=== PATIENT | female | born 1965 | race Caucasian/White ===

== ENCOUNTER 2016-07-25 13:55 | Emergency (ER) | payer BC, OTHER ==
[~2016-07-25] VITALS: Ht 162.6 cm; Wt 114.3 kg
[2016-07-25 14:02] VITALS: TEMP 36.6; Ht 162.6 cm; Wt 114.3 kg
[2016-07-25] MEDS ORDERED: NVLG SQ (14:16)
[2016-07-25] MEDS ORDERED: ADVIN25/60 INH (14:16)
[2016-07-25] MEDS ORDERED: MULTTAB58 PO (14:16)
[2016-07-25] MEDS ORDERED: ASCO10003 PO (14:16)
[2016-07-25] MEDS ORDERED: ALBU18002 INH (14:16)
[2016-07-25] MEDS ORDERED: CHOL1CAP27 PO (14:16)
[2016-07-25] MEDS ORDERED: CYCL10TA6 PO (14:16)
[2016-07-25] MEDS ORDERED: PARO10TA PO (14:16)
[2016-07-25] MEDS ORDERED: VALS40TA2 PO (14:16)
[2016-07-25] MEDS ORDERED: ASPI-461 PO (14:16)
[2016-07-25] MEDS ORDERED: GLC/500 PO (14:17)
[2016-07-25] MEDS ORDERED: INSU1.2I SC (14:19)
[2016-07-25] MEDS ORDERED: ONDANSETRON INJ 2 MG/ML 2 ML VIAL IV STA (14:54)
[2016-07-25] MEDS ORDERED: KETOROLAC TROMETHAMINE 30 MG/ML VIAL IV STA (14:54)
[2016-07-25] MEDS ORDERED: SODIUM CHLORIDE 0.9% 1000ML 1,000 ML IV STA (14:54)
--- NOTE | 2016-07-25 15:06 | EMERGENCY ROOM VISIT NOTE ---
History Report prepared by Ebony: David Wilcox Under the Supervision of: Dr. Hussain Chaves D.O. First contact with patient: 14:12 Chief Complaint: BACK PAIN Stated Complaint: SIDE PAIN GOING INTO BACK History of Present Illness The patient is a 50 year old female who presents to the Emergency Room with complaints of persistent left flank pain that started suddenly at 1000 this morning. The pain is rated 8/10 in severity and may radiate to the left lower quadrant. She has had similar pain in the past but it was never this severe. The patient also complains of nausea but she has not vomited. She denies headaches, chest pain, shortness of breath, problems with her bowels, or urinary symptoms. She denies any recent trauma or injury. The patient has a history of diabetes, hypertension, and diverticulosis. She is s/p hysterectomy for endometriosis. The patient has a family history of kidney stones. Source of History: patient Onset: 1000 this morning Position: back (left flank) Symptom Intensity: 8/10 Quality: other (sudden onset) Timing: other (persistent) Associated Symptoms: + nausea, No SOB, No chest pain, No headache, No urinary symptoms, No vomiting Review of Systems See HPI for pertinent positives & negatives. A total of 10 systems reviewed and were otherwise negative. Past Medical & Surgical Medical Problems: (1) Diabetes (2) Diverticulosis (3) HTN (hypertension) Family History FH: cancer FH: heart disease Kidney stone Social History Smoking Status: Never Smoker Housing Status: lives alone Occupation Status: employed Current/Historical Medications Scheduled Ascorbic Acid (Vitamin C), 2,000 MG PO DAILY Aspirin (Aspirin), 1 TAB PO DAILY Cholecalciferol (D3), 1 CAP PO DAILY Fluticasone Prop/Salmeterol (Advair Diskus 250/50 60 Dose), 1 PUFF INH BID Insulin Aspart (Novolog), UNITS SQ AC Insulin Glargine (Toujeo Solostar), 80 UNITS SC DAILY Levofloxacin (Levaquin), 750 MG PO DAILY Metformin Hcl (Glucophage), 500 MG PO DAILY Multiple Vitamin (Multivitamin), 1 TAB PO DAILY Paroxetine Hcl (Paxil), 10 MG PO QPM Valsartan (Diovan), 40 MG PO DAILY Scheduled PRN Albuterol Sulfate (Proair Respiclick), 1 PUFF INH Q6H PRN for SOB/Wheezing Cyclobenzaprine Hcl (Flexeril), 10 MG PO TID PRN for Muscle Spasms Oxycodone Immediate Rel Tab (Roxicodone Ir), 1-2 TAB PO Q4H PRN for Severe Pain Allergies Coded Allergies: Fish (Verified Allergy, Unknown, UNKNOWN, 07/25/16) Physical Exam Vital Signs Date Time Temp Pulse Resp B/P Pulse Ox O2 Delivery O2 Flow Rate FiO2 07/25/16 16:57 79 20 137/52 99 Room Air 07/25/16 16:01 72 18 157/76 98 Room Air 07/25/16 14:02 36.6 74 20 158/90 95 Room Air Physical Exam GENERAL: Patient is awake, alert, very anxious and uncomfortable appearing, appears to have difficulty getting comfortable. EYES: The conjunctivae are clear. The pupils are round and reactive. EARS, NOSE, MOUTH AND THROAT: The nose is without any evidence of any deformity. Mucous membranes are moist tongue is midline NECK: The neck is nontender and supple. RESPIRATORY: Normal respiratory effort is noted there is no evidence of wheezing rhonchi or rales CARDIOVASCULAR: Regular rate and rhythm noted there no murmurs rubs or gallops normal S1 normal S2 GASTROINTESTINAL: Mildly distended but soft, no specific guarding or rigidity elicited. BACK: No midline tenderness was noted, mid left CVA tenderness noted to percussion. MUSCULOSKELETAL/EXTREMITIES: There is no evidence of gross deformity full range of motion is noted in the hips and shoulders SKIN: There is no obvious evidence of any rash. There are no petechiae, pallor or cyanosis noted. NEUROLOGIC: Patient is awake alert and oriented x3 strength is symmetric patellar reflexes are 2+ bilaterally Medical Decision & Procedures ER Provider Diagnostic Interpretation: CT results as stated below per my review and radiologist interpretation. CT OF THE ABDOMEN AND PELVIS WITHOUT CONTRAST CLINICAL HISTORY: Left flank pain. COMPARISON STUDY: CT of the abdomen and pelvis January 19, 2007. TECHNIQUE: Axial images of the abdomen and pelvis were obtained without IV contrast. Images were reviewed in the axial, sagittal, and coronal planes. FINDINGS: Lung bases are clear. There is fatty infiltration of the liver. There is no biliary ductal dilatation status post cholecystectomy. Unenhanced images of the spleen, adrenal glands and pancreas are normal. There is no peripancreatic infiltration. No renal, ureteral or bladder calculi are present. There is no hydronephrosis or hydroureter. Subcutaneous densities are doubtful significance. These are partially calcified. There is left colon diverticulosis without evidence for acute diverticulitis. The appendix is normal. There is no evidence for a bowel obstruction. There is a fat-containing left groin hernia. Multilevel degenerative disc disease is noted within the lumbar spine, most pronounced at L3-L4 with posterior disc osteophyte complex that results in narrowing of the canal. This is suboptimally assessed by CT. IMPRESSION: 1. No urinary calculi or hydronephrosis. 2. No acute process within the abdomen or pelvis on unenhanced exam. 3. Colonic diverticulosis without evidence for acute diverticulitis. 4. Moderate to severe multilevel degenerative disc disease of the lumbar spine, most pronounced at L3-L4 with suspected severe central canal stenosis. Electronically signed by: Ozzie Cruz M.D. 07/25/2016 4:21 PM Dictated Date/Time: 07/25/2016 4:14 PM Laboratory Results 07/25/16 15:20 Red Blood Count 4.11, Mean Corpuscular Volume 86.4, Mean Corpuscular Hemoglobin 30.4, Mean Corpuscular Hemoglobin Concent 35.2, Mean Platelet Volume 8.9, Neutrophils (%) (Auto) 59.6, Lymphocytes (%) (Auto) 33.8, Monocytes (%) (Auto) 4.7, Eosinophils (%) (Auto) 1.5, Basophils (%) (Auto) 0.2, Neutrophils # (Auto) 3.29, Lymphocytes # (Auto) 1.86, Monocytes # (Auto) 0.26, Eosinophils # (Auto) 0.08, Basophils # (Auto) 0.01 07/25/16 15:20 Test 07/25/16 15:20 07/25/16 15:52 White Blood Count 5.51 K/uL (4.8-10.8) Red Blood Count 4.11 M/uL (4.2-5.4) Hemoglobin 12.5 g/dL (12.0-16.0) Hematocrit 35.5 % (37-47) Mean Corpuscular Volume 86.4 fL (80-100) Mean Corpuscular Hemoglobin 30.4 pg (25-34) Mean Corpuscular Hemoglobin Concent 35.2 g/dl (32-36) Platelet Count 283 K/uL (130-400) Mean Platelet Volume 8.9 fL (7.4-10.4) Neutrophils (%) (Auto) 59.6 % Lymphocytes (%) (Auto) 33.8 % Monocytes (%) (Auto) 4.7 % Eosinophils (%) (Auto) 1.5 % Basophils (%) (Auto) 0.2 % Neutrophils # (Auto) 3.29 K/uL (1.4-6.5) Lymphocytes # (Auto) 1.86 K/uL (1.2-3.4) Monocytes # (Auto) 0.26 K/uL (0.11-0.59) Eosinophils # (Auto) 0.08 K/uL (0-0.5) Basophils # (Auto) 0.01 K/uL (0-0.2) RDW Standard Deviation 40.6 fL (36.4-46.3) RDW Coefficient of Variation 12.9 % (11.5-14.5) Immature Granulocyte % (Auto) 0.2 % Immature Granulocyte # (Auto) 0.01 K/uL (0.00-0.02) Anion Gap 7.0 mmol/L (3-11) Est Creatinine Clear Calc Drug Dose 125.6 ml/min Estimated GFR () 118.3 Estimated GFR (Non- 102.1 BUN/Creatinine Ratio 17.1 (10-20) Calcium Level 8.5 mg/dl (8.5-10.1) Total Bilirubin 0.3 mg/dl (0.2-1) Direct Bilirubin < 0.1 mg/dl (0-0.2) Aspartate Amino Transf (AST/SGOT) 18 U/L (15-37) Alanine Aminotransferase (ALT/SGPT) 30 U/L (12-78) Alkaline Phosphatase 83 U/L (45-117) Total Protein 7.2 gm/dl (6.4-8.2) Albumin 3.5 gm/dl (3.4-5.0) Lipase 160 U/L (73-393) Urine Color YELLOW Urine Appearance CLEAR (CLEAR) Urine pH 6.0 (4.5-7.5) Urine Specific [place] 1.027 (1.000-1.030) Urine Protein NEG (NEG) Urine Glucose (UA) 2+ (NEG) Urine Ketones NEG (NEG) Urine Occult Blood NEG (NEG) Urine Nitrite NEG (NEG) Urine Bilirubin NEG (NEG) Urine Urobilinogen NEG (NEG) Urine Leukocyte Esterase MODERATE (NEG) Urine WBC (Auto) >30 /hpf (0-5) Urine RBC (Auto) 0-4 /hpf (0-4) Urine Hyaline Casts (Auto) 1-5 /lpf (0-5) Urine Epithelial Cells (Auto) >30 /lpf (0-5) Urine Bacteria (Auto) 1+ (NEG) Laboratory results per my review. Medications Administered Medications (Trade) Dose Ordered Sig/Ariane Route Start Time Stop Time Status Last Admin Dose Admin Ketorolac Tromethamine 30 mg 30 mg NOW STAT IV 07/25/16 14:54 07/25/16 14:55 DC 07/25/16 15:53 30 MG Sodium Chloride (Nss 1000ml) 1,000 ml @ 999 mls/hr Q1H1M STAT IV 07/25/16 14:54 07/25/16 15:54 DC 07/25/16 15:51 999 MLS/HR Ondansetron HCl (Zofran Inj) 4 mg NOW STAT IV 07/25/16 14:54 07/25/16 14:55 DC 07/25/16 15:52 4 MG Levofloxacin (Levaquin Tab) 750 mg NOW ONCE PO 07/25/16 16:30 07/25/16 16:31 DC 07/25/16 16:39 750 MG ED Course 1417: The patient was evaluated by my medical student. 1450: The patient was evaluated in room C12b. A complete history and physical examination were performed. 1454: Zofran 4 mg IV, NSS 1000 ml @ 999 mls/hr, Toradol 30 mg IV. 1630: Levaquin 750 mg PO. 1645: Reassessed the patient. Discussed the findings with the patient. She verbalized understanding and agreement of the treatment plan. The patient is ready for discharge. Medical Decision Prior records/ancillary studies reviewed. Triage Nursing notes reviewed. Additional history obtained from the family. The patient's history was concerning for flank pain. Differential diagnosis: Etiologies such as renal colic, appendicitis, diverticulitis, mesenteric ischemia, aortic pathology, infections, inflammatory bowel disease, PUD, biliary pathology, UTI, as well as others were entertained. The patient is a 50-year-old female who presented to the emergency department for an evaluation of left flank pain. The patient was very uncomfortable and I thought her condition was consistent with renal colic. The patient's CAT scan did not show any acute abnormality but her urine did show signs of urinary tract infection. She was treated with IV fluids IV pain medicine and IV antiemetics. She was also started on antibiotics in the emergency department. I discussed the patient's laboratory and radiographic studies with her including the findings on her lumbar spine. She states that she does have a history of disc herniation. She was encouraged to rest and avoid any strenuous activity. She was also encouraged to continue all medications as prescribed. She was also encouraged to follow-up with her primary care physician as soon as possible for possible MRI if symptoms do not improve otherwise she was encouraged to return to the emergency department immediately if symptoms change worsen or the need arises. Impression Primary Impression: Left flank pain Additional Impressions: UTI (urinary tract infection) Lumbar disc disease Scribe Attestation The scribe's documentation has been prepared under my direction and personally reviewed by me in its entirety. I confirm that the note above accurately reflects all work, treatment, procedures, and medical decision making performed by me. Departure Information Dispostion Home / Self-Care Prescriptions Levofloxacin (Levaquin) 750 Mg Tab 750 MG PO DAILY, #6 TAB Prov: Hussain Chaves, DO 07/25/16 Oxycodone Immediate Rel Tab (ROXICODONE IR) 5 Mg Tab 1-2 TAB PO Q4H Y for Severe Pain, #24 TAB Prov: Hussain Chaves, DO 07/25/16 Referrals Dwight Das M.D. (PCP) Forms HOME CARE DOCUMENTATION FORM, IMPORTANT VISIT INFORMATION, Work Instructions Patient Instructions ED Back Pain Acute Chronic, My [facility], Urinary Tract Infecs Women Additional Instructions Call your family to schedule a follow-up appointment. Rest and avoid any strenuous activity. Continue all medications as prescribed. Continue using Motrin and Tylenol as directed for pain. I would recommend an MRI the back whenever he follow-up with your family doctor if symptoms do not improve by treating the urinary tract infection. Problem Qualifiers Additional Impressions: UTI (urinary tract infection) Urinary tract infection type: site unspecified Hematuria presence: without hematuria Qualified Codes: N39.0 - Urinary tract infection, site not specified
[2016-07-25 15:39] LABS: BASO % 0.2 %; BASO ABS # 0.01 K/uL (0-0.2); COMPLETE YES; EOS % 1.5 %; HEMATOCRIT 35.5 % (37-47); IG% 0.2 %; LYMPH % 33.8 %; LYMPH ABS # 1.86 K/uL (1.2-3.4); MEAN CELL VOLUME 86.4 fL (80-100); MEAN CORPUSCULAR HEMOGLOBIN 30.4 pg (25-34); MEAN CORPUSCULAR HGB CONC 35.2 g/dl (32-36); MEAN PLATELET VOLUME 8.9 fL (7.4-10.4); MONO % 4.7 %; NEUT % 59.6 %; PLATELET COUNT 283 K/uL (130-400); RED BLOOD COUNT 4.11 M/uL (4.2-5.4); WHITE BLOOD COUNT 5.51 K/uL (4.8-10.8)
[2016-07-25 15:57] LABS: ALT/SGPT 30 U/L (12-78); BLOOD UREA NITROGEN 11 mg/dl (7-18); BUN/CREATININE RATIO 17.1 (10-20); CALCIUM 8.5 mg/dl (8.5-10.1); CARBON DIOXIDE 29 mmol/L (21-32); CHLORIDE 104 mmol/L (98-107); CREATININE 0.65 mg/dl (0.60-1.20); GLUCOSE 237 mg/dl (70-99); POTASSIUM 3.9 mmol/L (3.5-5.1); SODIUM 140 mmol/L (136-145)
[2016-07-25 16:03] LABS: ALKALINE PHOSPHATASE 83 U/L (45-117); AST/SGOT 18 U/L (15-37)
[2016-07-25 16:21] LABS: URINE APPEARANCE CLEAR (CLEAR); URINE BILIRUBIN NEG (NEG); URINE COLOR YELLOW; URINE EPITHELIAL CELL AUTO >30 /lpf (0-5); URINE NITRITE NEG (NEG); URINE SPECIFIC GRAVITY 1.027 (1.000-1.030); UROBILINOGEN NEG (NEG)
[2016-07-25 16:23] LABS: MANUAL MICROSCOPIC REQUIRED? NO; REVIEW REQ? NO
--- NOTE | 2016-07-25 16:23 | DIAGNOSTIC IMAGING REPORT ---
CT OF THE ABDOMEN AND PELVIS WITHOUT CONTRAST CLINICAL HISTORY: Left flank pain. COMPARISON STUDY: CT of the abdomen and pelvis January 19, 2007. TECHNIQUE: Axial images of the abdomen and pelvis were obtained without IV contrast. Images were reviewed in the axial, sagittal, and coronal planes. FINDINGS: Lung bases are clear. There is fatty infiltration of the liver. There is no biliary ductal dilatation status post cholecystectomy. Unenhanced images of the spleen, adrenal glands and pancreas are normal. There is no peripancreatic infiltration. No renal, ureteral or bladder calculi are present. There is no hydronephrosis or hydroureter. Subcutaneous densities are doubtful significance. These are partially calcified. There is left colon diverticulosis without evidence for acute diverticulitis. The appendix is normal. There is no evidence for a bowel obstruction. There is a fat-containing left groin hernia. Multilevel degenerative disc disease is noted within the lumbar spine, most pronounced at L3-L4 with posterior disc osteophyte complex that results in narrowing of the canal. This is suboptimally assessed by CT. IMPRESSION: 1. No urinary calculi or hydronephrosis. 2. No acute process within the abdomen or pelvis on unenhanced exam. 3. Colonic diverticulosis without evidence for acute diverticulitis. 4. Moderate to severe multilevel degenerative disc disease of the lumbar spine, most pronounced at L3-L4 with suspected severe central canal stenosis. Electronically signed by: Ozzie Cruz M.D. 07/25/2016 4:21 PM Dictated Date/Time: 07/25/2016 4:14 PM
[2016-07-25] MEDS ORDERED: LEVOFLOXACIN 250 MG TAB PO ONE (16:30)
[2016-07-25] MEDS ORDERED: OXYC1TAB3 PO (16:49)
[2016-07-25] MEDS ORDERED: LEVO1TAB35 PO (16:49)
[2016-07-25 16:57] VITALS: BP 137/52; PULSE 79; O2SAT 99
== END 2016-07-25 17:17 | disposition home or self-care (01) ==
LOC: C.EDB 13:57 → C.EDC 17:17
DX: N39.0 Urinary tract infection, site not specified (principal); M51.36 Other intervertebral disc degeneration, lumbar region; R10.9 Unspecified abdominal pain; E11.9 Type 2 diabetes mellitus without complications; Z79.4 Long term (current) use of insulin; I10 Essential (primary) hypertension

== ENCOUNTER 2022-08-16 06:38 | Observation (INO) ==
--- NOTE | 2022-07-19 14:36 | PAT Medication Instructions ---
Medication Instructions Date of Service July 19, 2022 Home Medications Medication Instructions Recorded lancets 33 gauge (BD Ultra Fine #300 ea 04/05/21 Lancets) albuterol sulfate 90 mcg/actuation 2 puff inhalation Q6H PRN 07/09/21 aerosol inhaler shortness of breath or wheezing #8.5 grams blood pressure kit-extra large #1 ea 07/25/21 valsartan 40 mg tablet 40 mg PO QAM #90 tabs 07/27/21 paroxetine HCl 10 mg tablet 10 mg PO QAM #60 tabs 10/01/21 blood sugar diagnostic (Contour #400 ea 05/13/22 Next Test Strips) fluticasone furoate 100 1 ea inhalation QAM #60 ea 05/13/22 mcg-vilanterol 25 mcg/dose inhalation powder pen needle, diabetic 33 gauge x #200 ea 05/13/22" (Easy Comfort Pen [place]) multivitamin 1 tab PO QAM furosemide 20 mg tablet 20 mg PO UD PRN cholecalciferol (vitamin D3) 125 mcg (5,000 unit) capsule 125 mcg PO HS acetaminophen 500 mg tablet 1,000 mg PO UD PRN lancets 33 gauge (BD Ultra Fine Lancets) albuterol sulfate 90 mcg/actuation aerosol inhaler 2 puff inhalation Q6H PRN blood pressure kit-extra large valsartan 40 mg tablet 40 mg PO QAM paroxetine HCl 10 mg tablet 10 mg PO QAM cyanocobalamin (vitamin B-12) 2,000 mcg tablet 2,000 mcg PO DAILY blood sugar diagnostic (Contour Next Test Strips) fluticasone furoate 100 mcg-vilanterol 25 mcg/dose inhalation powder 1 ea inhalation QAM pen needle, diabetic 33 gauge x " (Easy Comfort Pen [place]) clotrimazole 1 % topical cream 1 applic topical UD PRN cyclobenzaprine 10 mg tablet 10 mg PO UD PRN fluconazole 150 mg tablet (Diflucan) 150 mg PO UD PRN insulin glargine U-300 conc 300 unit/mL (3 mL) subcutaneous pen (Toujeo Max U- 300 SoloStar) 72 unit subcut HS insulin lispro 100 unit/mL subcutaneous pen (Humalog KwikPen (U-100) Insulin) 25 unit UD PRN magnesium oxide 500 mg tablet 500 mg PO HS tramadol 50 mg tablet 50 mg PO UD PRN trazodone 50 mg tablet 50 mg PO HS Continue as directed acetaminophen 500 mg tablet 1,000 mg PO UD PRN(if needed) fluconazole 150 mg tablet (Diflucan) 150 mg PO UD PRN(if needed) STOP taking 24 hours before surgery clotrimazole 1 % topical cream 1 applic topical UD PRN DO NOT take the morning of surgery multivitamin 1 tab PO QAM furosemide 20 mg tablet 20 mg PO UD PRN valsartan 40 mg tablet 40 mg PO QAM cyanocobalamin (vitamin B-12) 2,000 mcg tablet 2,000 mcg PO DAILY cyclobenzaprine 10 mg tablet 10 mg PO UD PRN(if needed) insulin lispro 100 unit/mL subcutaneous pen (Humalog KwikPen (U-100) Insulin) 25 unit UD PRN Take morning of surgery With a small sip of water, OTHERWISE NOTHING TO EAT OR DRINK AFTER MIDNIGHT: albuterol sulfate 90 mcg/actuation aerosol inhaler 2 puff inhalation Q6H PRN(use if needed; please bring with you to hospital day of surgery if possible) paroxetine HCl 10 mg tablet 10 mg PO QAM fluticasone furoate 100 mcg-vilanterol 25 mcg/dose inhalation powder 1 ea inhalation QAM tramadol 50 mg tablet 50 mg PO UD PRN(if needed) Take evening before surgery cholecalciferol (vitamin D3) 125 mcg (5,000 unit) capsule 125 mcg PO HS albuterol sulfate 90 mcg/actuation aerosol inhaler 2 puff inhalation Q6H PRN(if needed) insulin glargine U-300 conc 300 unit/mL (3 mL) subcutaneous pen (Toujeo Max U- 300 SoloStar) 72 unit subcut HS magnesium oxide 500 mg tablet 500 mg PO HS trazodone 50 mg tablet 50 mg PO HS Other Notes If you have any questions please call us at [phone] or [phone] or [phone] or [phone]
--- NOTE | 2022-07-24 15:16 | Anesthesiology Consultation ---
Date of Service July 24, 2022 Assessment & Plan (1) Encounter for pre-operative examination: Chart Review Chart Review: Acceptable Risk for Surgery and Patient seen in Pre Admission Testing - Check BSG AM DOS -Due to BMI and DM- patient is NOT an acceptable Outpatient Joint Candidate Per PAT appt on 07/24/22, patient denies any recent travel or large group activities. Pt had suspected flu 07/12/22 (seen in [facility] ED)- had vomiting, diarrhea, dehydration x 24 hours. Tested Covid negative at [facility] ER 07/12/22. Symptoms resolved. Pt is vaccinated for Covid. No known Covid exposures in the past 21 days. No known Covid infection in the past 90 days. Will leave to surgeon's discretion if preop Covid testing needed. Educated on importance of using Covid precautions one week prior to surgery Teaching & Discussion Pre-Anesthesia Teaching/Discussion Notes: Instructed NPO after midnight before surgery,except medications with 15 cc of water. Medication instructions provided according to the PAT guidelines. History Surgery Operation Date: 08/16/22 09:20 Proposed Procedures p Right Total Knee Arthroplasty - Fan Cummings, Height/Weight Height: 5 ft 4 in Weight: 119.3 kg Allergies Allergy/AdvReac Type Severity Reaction Status Date / Time shellfish derived Allergy Throat Verified 07/24/22 13:41 swelling, eyes shut cholestatin Allergy Unknown Unknown Uncoded 07/24/22 13:41 Fish Allergy Unknown Throat Uncoded 07/24/22 13:41 swelling, eyes shut pine Allergy Unknown Seasonal Uncoded 07/24/22 13:41 trees, sap- watery eyes kenalog AdvReac Intermediate Muscle Uncoded 07/24/22 15:18 spasm Medications Home Medications Medication Instructions Recorded Confirmed Last Taken multivitamin 1 tab PO QAM 04/22/18 07/24/22 Unknown furosemide 20 mg tablet 20 mg PO UD PRN Fluid Retention 08/18/19 07/24/22 Unknown cholecalciferol (vitamin D3) 125 125 mcg PO HS 08/25/20 07/24/22 Unknown mcg (5,000 unit) capsule acetaminophen 500 mg tablet 1,000 mg PO UD PRN Pain 03/01/21 07/24/22 Unknown aspirin 81 mg capsule 81 mg PO HS 03/01/21 07/24/22 Unknown lancets 33 gauge (BD Ultra Fine #300 ea 04/05/21 07/24/22 Unknown Lancets) albuterol sulfate 90 mcg/actuation 2 puff inhalation Q6H PRN 07/09/21 07/24/22 Unknown aerosol inhaler shortness of breath or wheezing #8.5 grams blood pressure kit-extra large #1 ea 07/25/21 07/24/22 Unknown valsartan 40 mg tablet 40 mg PO QAM #90 tabs 07/27/21 07/24/22 Unknown paroxetine HCl 10 mg tablet 10 mg PO QAM #60 tabs 10/01/21 07/24/22 Unknown cyanocobalamin (vitamin B-12) 2,000 mcg PO DAILY 03/08/22 07/24/22 Unknown 2,000 mcg tablet blood sugar diagnostic (Contour #400 ea 05/13/22 07/24/22 Unknown Next Test Strips) fluticasone furoate 100 1 ea inhalation QAM #60 ea 05/13/22 07/24/22 Unknown mcg-vilanterol 25 mcg/dose inhalation powder pen needle, diabetic 33 gauge x #200 ea 05/13/22 07/24/22 Unknown 5/32" (Easy Comfort Pen [place]) clotrimazole 1 % topical cream 1 applic topical UD PRN Skin 07/19/22 07/24/22 Unknown Irritation cyclobenzaprine 10 mg tablet 10 mg PO UD PRN muscle spasm 07/19/22 07/24/22 Unknown fluconazole 150 mg tablet 150 mg PO UD PRN YEAST INFECTION 07/19/22 07/24/22 Unknown (Diflucan) insulin glargine U-300 conc 300 72 unit subcut HS 07/19/22 07/24/22 Unknown unit/mL (3 mL) subcutaneous pen (Toujeo Max U-300 SoloStar) insulin lispro 100 unit/mL 25 unit UD PRN DIABETES 07/19/22 07/24/22 Unknown subcutaneous pen (Humalog KwikPen (U-100) Insulin) magnesium oxide 500 mg tablet 500 mg PO HS 07/19/22 07/24/22 Unknown tramadol 50 mg tablet 50 mg PO UD PRN pain 07/19/22 07/24/22 Unknown trazodone 50 mg tablet 50 mg PO HS INSOMNIA 07/19/22 07/24/22 Unknown Past Medical History Medical History Anxiety Asthma Controlled Cervical herniated disc x4 (Limited ROM to left per pt) Degenerative disc disease Lumbar, cervical Diabetes IDDM Diverticulosis No issues Episodic recurrent vertigo Esophageal stricture Hx of esophageal stretching Extreme obesity GERD (gastroesophageal reflux disease) Well controlled and stable History of anemia History of COVID-19 02/2022 HTN (hypertension) Hyperlipidemia Hx Lumbar herniated disc X3 Migraine Hx Sensorineural hearing loss (SNHL) of left ear with restricted hearing of right ear Torn rotator cuff Left (+ Bursitis/bone spur) Exercise / Class Metabolic Activity III < 4 Walking/Shop/Light housework (one flight of stairs - no chest pain, mild SOB) Past Family History Family History Mother Diabetes Hypertension Pancreatic cancer Grandmother (Maternal) Stroke Heart disease Grandfather (Maternal) Alcoholism Son Alcoholism Father Heart disease Aunt Diabetes Aunt Cancer Grandfather (Paternal) Heart disease Grandmother (Paternal) Heart disease Sister Breast cancer Other FHx: cancer FHx: heart disease Past Surgical History Surgical History Delivery by section H/O exploratory laparotomy H/O: hysterectomy Total History of anesthesia complications Awareness with remote surgery 5 years ago History of bunionectomy of right great toe + Pin History of colonoscopy History of esophagogastroduodenoscopy (EGD) History of surgical procedure on eye proper using laser Laser eye surgery (Rx2, Lx2) Hx of cholecystectomy Nausea and vomiting after administration of anesthetic agent + Migraines Past Anesthesia History No Hx of Anesthesia Complications (with exception to awareness with surgeries (states she wakes up early with most surgeries); also has PONV/migraines) and No Family Hx of Anesthesia Complications History of PONV No Hx of Motion Sickness and History of PONV Social History Smoking Status: Never smoker Do You Dip or Chew Tobacco: No Hx Alcohol Use: Yes (VERY RARE) Alcohol type: wine and hard liquor alcohol intake frequency: holidays/special occasions only Alcohol Intake Frequency Comment: VERY RARE Hx Substance Use: No substance use type: does not use Review of Systems Hx of snoring - no sleep study Patient denies chest pain, shortness of breath at rest, cough, wheezing, palpitations. No hx of seizures, stroke, [place]. No hx of blood clots or blood transfusions Physical Exam Vital Signs VITALS BP 129/82 P 85 TEMP 98.0 SP02 96% RESP 16 Constitutional no acute distress ENMT Mouth: no TMJ clicking Thyromental Distance: < 3.5 Finger Breadths (3.0) Mallampati Class: II (smaller airway ) Missing molar Neck + limited neck extension (minimal) Respiratory normal respiratory effort; no respiratory distress Auscultation: lungs clear to auscultation bilaterally; no wheezes Cardiovascular Rate/Rhythm: regular rate and regular rhythm Heart Sounds: no murmur Vessels: no carotid bruit Musculoskeletal Spine: no pain with cervical ROM Extremities: extremities normal to inspection Psychiatric Orientation: alert Lab Results Anesthesia Preop Results Results Anesthesia Widget: WBC 5.21 K/ul (4.8-10.8) 07/24/22 Hgb 12.4 g/dl (12.0-16.0) 07/24/22 Hct 36.2 % (37.0-47.0) L 07/24/22 Plt 284 K/uL (130-400) 07/24/22 Na 138 mmol/L (136-145) 07/24/22 K 4.6 mmol/L (3.5-5.1) 07/24/22 Cl 100 mmol/L (98-107) 07/24/22 CO2 32 mmol/L (21-32) 07/24/22 BUN 15 mg/dl (6-23) 07/24/22 Creat 0.74 mg/dl (0.6-1.2) 07/24/22 Glucose Level 299 mg/dl (70-99(Fasting)) H 07/24/22 PT 10.9 Seconds (9.0-12.0) 07/24/22 PTT 23.6 Seconds (21.0-31.0) 07/24/22 INR 1.0 (0.9-1.1) 07/24/22 HA1c 8.9 % (4.5-5.6) H 07/24/22 Blood Type O Positive 07/24/22 Antibody Screen NEGATIVE 07/24/22 Testing Laboratory Results Surgeon's office informed of Hgb A1C and hyperglycemia- will leave to surgeon's discretion on how to proceed Electrocardiogram Date: 07/24/22 Findings: + NSR @ (82bpm ) Normal EKG per cardio Chest X-Ray Date: 07/24/22 Findings: + NAD Echocardiogram Date: 01/10/17 EF: 63% LV Function: normal RWMA: + none Other Findings: no LVH or no diastolic dysfunction Valvular Disease: + no significant valvular disease Mild aortic sclerosis is present- no aortic stenosis
[~2022-08-16 06:38] MED LIST: ACETAMINOPHEN 500 MG TAB PO SCH; BUPIVACAINE 0.5 % 5 MG/1 ML PF 10ML VIAL ONE; FAMOTIDINE 20 MG TAB PO SCH; GABAPENTIN 600 MG DOSE PO SCH; LR 500ML BOLUS, THEN 15ML/HR IV SCH; LR 60ML/HR IV SCH; ORTHO JOINT MIX INFIL SCH; ROPIVACAINE 0.5% 5 MG/ML 30 ML VIAL ONE; TRANEXAMIC ACID 1,000 MG **IV Intra-op IV SCH; TRANEXAMIC ACID 1,000 MG **IV Pre-op IV SCH; ceFAZolin 2000MG 2,000 MG/15 ML SYR IV SCH; dexAMETHasone 4 MG TAB PO SCH
[2022-08-16] MEDS ORDERED: PROPOFOL IV EMULSION 10 MG/ML 20 ML VIAL IV ONE ×2 (07:22→11:08)
[2022-08-16] MEDS ORDERED: MIDAZOLAM HCL 1 MG/ML 2ML VIAL ONE ×2 (07:22→10:25)
[2022-08-16] MEDS ORDERED: fentaNYL citrate PF 100 MCG/2 ML VIAL ONE (07:22)
--- NOTE | 2022-08-16 08:08 | History & Physical Bridge Note ---
Date of Service August 16, 2022 History & Physical Bridge Note I have examined the patient, reviewed the History & Physical and in the interval since the performance of the History & Physical I have noted the following changes of clinical significance: no changes noted
[2022-08-16] MEDS ORDERED: ONDANSETRON INJ 2 MG/ML 2 ML VIAL ONE (08:32)
[2022-08-16] MEDS ORDERED: ORTHO JOINT ANESTHETIC ONE (08:45)
[2022-08-16] MEDS ORDERED: PHENYLEPHRINE 100MCG/ML 5ML SYR ONE (10:42)
--- NOTE | 2022-08-16 11:18 | Operative Report ---
PG Post Operative Report Pre & Post Diagnosis Operation Date: 08/16/22 09:20 Pre-Op Diagnosis: Degenerative joint disease of right knee Post-Op Diagnosis: Degenerative joint disease of right knee I identified the patient and participated in the time-out.: Yes Procedure Operation Date: 08/16/22 09:20 Actual Procedures p Right Total Knee Arthroplasty(Right) - Fan Cummings DO Surgeon Fan Cummings DO Packager Fan Mantilla PA-C Estimated Blood Loss 30 Findings Consistent with Post-Op Diagnosis Specimens Right femoral and tibial bone Description of Procedure Implants used: I used a Loc Persona total knee arthroplasty system with a size 6 standard PS femur, D tibia with a 30 mm stem extension, 28 oval patella, and a size 12 CPS polyethylene bearing. All components were cemented in place with Biomet cement. Paula arrived [facility] for the above procedure. She was seen in the preoperative holding area and the operative extremity was identified and signed. She was given a preoperative antibiotic, TXA, a spinal anesthetic and an adductor nerve block. She was taken back to the operating room and laid on the table in supine position. She was given basic sedation. The operative knee was then prepped and draped in sterile fashion. A timeout was done, and the patient and the operative extremity was properly identified. A midline incision was made directly over the patella. Dissection was taken down to the extensor mechanism. A midvastus arthrotomy was used. The medial re tinaculum was released and the fat pad was mostly excised. The knee was flexed and the ACL, PCL, and meniscus were removed. A drill was sent down the center of the femoral canal followed by an intr amedullary roby. Off that roby a distal femoral cutting block was placed. 9 mm was resected off the distal femur at 5 of valgus. A posterior referencing AP sizing guide was then placed on the distal femur. The femur measured to be a size 6. 2 drill holes were placed in 3 of external rotation. A 4-in-1 cutting block was then impacted into place. Anterior, posterior, and chamfer cuts were then made. The proximal tibia was then exposed. An external tibial alignment guide was placed. A tibial cut guide was then anchored in place and the proximal tibia was then resected. The posterior aspect of the knee was then opened up and any additional meniscus fragments and osteophytes were removed. The tibia measured to be a size D. The tibial plate was then placed in the appropriate rotation and the tibia was drilled and punched. Trial components were then placed. I used a size 12 CPS polyethylene insert. The knee was brought through a full range of motion and felt to be stable. The peg holes for the femoral component were then drilled. The patella was then everted and 9 mm was resected off the posterior aspect of the patella. The patella measured to be a size 28 oval. 3 peg holes were then drilled. A trial patella was placed. The knee was once again brought through a full range of motion and felt to be stable. Trial components were then removed. The surrounding soft tissues were injected with 100 cc of an orthopedic pain control cocktail. All components were then cemented into place with Biomet cement. The final polyethylene insert was then snapped into place. Once cement was dry the tourniquet was deflated. Hemostasis was obtained. A dilute betadyne lavage was then done for 3 minutes. The joint was then irrigated with normal saline solution. The midvastus arthrotomy was then closed with #1 Vicryl suture. The skin was closed with 2-0 Vicryl, 3-0V lock suture, and garfield. A soft compressive dressing was placed. She was then transferred to a hospital bed and taken to the postanesthesia care unit in stable condition. She tolerated the procedure well. Fan Mantilla PA-C, was present for the entire procedure. He was critical for patient positioning, prepping, draping, retraction exposure, wound closure and application of sterile dressing. I attest to the content of the Intraoperative Record and any orders documented t herein. Any exceptions are noted below.
--- NOTE | 2022-08-16 12:22 | Anesthesiology Progress Note ---
Date of Service August 16, 2022 Anesthesia Post Procedure Vital Signs Vital Signs: Temp Pulse Resp BP Pulse Ox O2 Del Method O2 Flow Rate 08/16/22 12:10 76 15 120/74 94 Room Air 08/16/22 12:00 77 13 134/69 96 Room Air 08/16/22 11:50 80 12 115/71 100 Oxymask 4 08/16/22 11:41 97.9 F 86 18 109/62 98 Oxymask 10 08/16/22 07:28 Room Air 08/16/22 07:28 98.1 F 78 20 152/99 H 97 Room Air Transfer of Care Handoff Completed per policy Notes Mental Status: alert / awake / arousable and participated in evaluation Patient Amnestic to Procedure: Yes Nausea / Vomiting: adequately controlled Pain: adequately controlled Airway Patency, RR, SpO2: stable & adequate BP & HR: stable & adequate Hydration State: stable & adequate Neuraxial Anesthesia: was administered and sensory block is resolving Anesthetic Complications: no major complications apparent and Pt Satisfied with anesthetic care
[2022-08-16] MEDS ORDERED: ONDANSETRON INJ 2 MG/ML 2 ML VIAL IV PRN (12:40)
[2022-08-16] MEDS ORDERED: MAGNESIUM HYDROXIDE SUSP 30 ML UDC PO PRN (12:40)
[2022-08-16] MEDS ORDERED: FUROSEMIDE 20 MG TAB PO PRN (12:40)
[2022-08-16] MEDS ORDERED: CYCLOBENZAPRINE HCL 10 MG TAB PO PRN (12:40)
[2022-08-16] MEDS ORDERED: PHARMACY GLYCEMIC MGMT CONSULT PRN (12:40)
[2022-08-16] MEDS ORDERED: ALBUTEROL HFA 8 GM INHALER INH PRN (12:40)
[2022-08-16] MEDS ORDERED: NALOXONE HCL 0.4 MG/1 ML VIAL/CARP IV PRN (12:40)
[2022-08-16] MEDS ORDERED: HYDROmorphone INJ 0.5 MG/0.5 ML SYR IV PRN (12:40)
[2022-08-16] MEDS ORDERED: bisacodyL 10 MG SUPP PR PRN (12:40)
[2022-08-16] MEDS ORDERED: CLOTRIMAZOLE 1% CR 15 GM TUBE TOP PRN (12:40)
[2022-08-16] MEDS ORDERED: METOCLOPRAMIDE HCL INJ 5 MG/ML 2 ML VIAL IV PRN (12:40)
[2022-08-16] MEDS ORDERED: FLUCONAZOLE 50 MG TAB PO PRN (12:40)
--- NOTE | 2022-08-16 12:51 | XRay Report ---
RIGHT KNEE 2 VIEWS History: Right total knee arthroplasty. Degenerative arthritis. Postop. FINDINGS: The patient is status post a right total knee arthroplasty. The hardware is intact. No frac ture or dislocation. Skin garfield are in place. IMPRESSION: Right total knee arthroplasty. No evidence for hardware complication. ACT 112: Negative or not required by law. Electronically signed by: Pb Davila M.D. 08/16/2022 12:50 PM
[2022-08-16] MEDS: SODIUM CHLORIDE 0.9% 1000ML 1,000 ML IV SCH ×2 (13:00→22:48)
[2022-08-16] MEDS ORDERED: LANTUS PER UNIT CHARGE SQ ONE ×2 (13:30→20:45)
[2022-08-16] MEDS ORDERED: GLUCAGON FOR INJ 1 MG VIAL IM PRN (13:30)
[2022-08-16] MEDS ORDERED: GLUCOSE 40% GEL 15 GM TUBE PO PRN (13:30)
[2022-08-16] MEDS ORDERED: GLUCOSE 10 TAB/TUBE PO PRN (13:30)
[2022-08-16] MEDS ORDERED: DEXTROSE 50% 50 ML SYRINGE IV PRN (13:30)
[2022-08-16] MEDS ORDERED: CARBOHYDRATES FOR HYPOGLYCEMIA PO PRN (13:30)
[2022-08-16] MEDS: INSULIN ASPART PER UNIT CHARGE SC SCH ×3 (13:43→20:55)
[2022-08-16] MEDS: KETOROLAC TROMETHAMINE 15 MG/ML VIAL IV SCH ×2 (13:45→19:35)
[2022-08-16] MEDS: ACETAMINOPHEN 500 MG TAB PO SCH ×2 (13:45→21:57)
--- NOTE | 2022-08-16 14:11 | Pharmacy Report ---
Pharmacy Glycemic Short Note 2 - Date of Service August 16, 2022 - Glycemic Short BSG Results (Last 24 hours): 08/16/22 08/16/22 08/16/22 07:16 11:44 12:55 POC Glucose 191 H 230 H 236 H OUTPATIENT ANTIDIABETIC REGIMEN: * Toujeo 72 units HS; Humalog 25 units TIDM + sliding scale * A1c 8.9% 07/24/22 ASSESSMENT: * Patient admitted following R Knee Arthroplasty. Patient has type II diabetes with insulin resistance. * Receive 8 mg PO dexamethasone preop * Will start weight based stress of 3 (same as stress 1 total outpatient dose) * Will give lantus 50 units x 1 now PLAN FOR INPATIENT GLYCEMIC CONTROL: * Hold outpatient oral diabetes medications * Basal insulin * Lantus 50 units x 1; reassess in AM * Bolus insulin * NovoLog per scale ACHS or Q6hrs while NPO * Goal Range: Low 110 mg/dL - High 140 mg/dL * Correction Factor: 15 mg/dL/unit * Nutritional / Prandial insulin per carb ratio of 1 unit per 5 grams CHO consumed
[2022-08-16] MEDS: oxyCODONE HCL IR 5 MG TAB (IMMEDIATE RELEASE) PO PRN ×2 (17:17→22:03)
[2022-08-16] MEDS: ceFAZolin 2000MG 2,000 MG/15 ML SYR IV SCH (17:17)
[2022-08-16] MEDS ORDERED: traZODone HCL 50 MG TAB PO SCH (21:00)
[2022-08-16] MEDS ORDERED: MAGNESIUM OXIDE 400 MG TAB PO SCH (21:00)
[2022-08-16] MEDS ORDERED: SENNA 8.6 MG TAB PO SCH (21:00)
[2022-08-16] MEDS: DOCUSATE SODIUM 100 MG CAP PO SCH (21:57)
[2022-08-16] MEDS: ASPIRIN 81 MG ECTAB PO SCH (21:57)
[2022-08-17] MEDS: INSULIN ASPART PER UNIT CHARGE SC SCH ×4 (00:30→08:54)
[2022-08-17] MEDS: KETOROLAC TROMETHAMINE 15 MG/ML VIAL IV SCH ×2 (02:04→08:24)
[2022-08-17] MEDS: ceFAZolin 2000MG 2,000 MG/15 ML SYR IV SCH (02:05)
[2022-08-17] MEDS ORDERED: Nursing to Pharmacy Communication SCH (06:00)
[2022-08-17] MEDS: ACETAMINOPHEN 500 MG TAB PO SCH (06:03)
--- NOTE | 2022-08-17 06:25 | Orthopedic Progress Note ---
Date of Service August 17, 2022 Assessment & Plan (1) Status post right knee replacement: Overall she is doing very well. She is not having much pain in the right knee. She will be seen by physical therapy today for ambulation and range of motion exercises. Her dressing can be changed after physical therapy today. She is on aspirin for DVT prophylaxis. She can be discharged home later today. She will follow-up with orthopedics in 2 weeks. Brigitte Mitchell was seen and examined at bedside this morning. Overall she is doing very well. She is not having much pain in the right knee. She has been up and ambulating to the bathroom. She has no complaints.. Review of Systems All systems reviewed & are unremarkable except as noted in HPI & below. Physical Exam On physical examination of the right knee, the dressing is clean and dry. Her leg is out full extension. She is active dorsiflexion plantarflexion of her right ankle.. Results & Data Results & Data Laboratory Results . Diagnostic Findings Postoperative x-rays of the right knee show the prosthesis to be in anatomic alignment without any evidence of fracture, dislocation, or loosening.. PG Care Time/CCT Total # of Minutes Spent Total Time Spent with Patient: Total time spent is greater than 50% in coordination of care (as documented) at patient's floor/unit and/or counseling patient: Coding Level of Care Code 95989 Post Operative Follow-Up Diagnoses Status post right knee replacement Z96.651
--- NOTE | 2022-08-17 06:26 | Discharge Summary ---
Date of Service August 17, 2022 Principal Diagnosis Same as "Discharge Diagnosis" noted below under Discharge Instructions. Discharge Exam On physical examination of the right knee, the dressing is clean and dry. Her leg is out full extension. She is active dorsiflexion plantarflexion of her right ankle.. Discharge Data Procedures Performed Operation Date: 08/16/22 09:20 Actual Procedures p Right Total Knee Arthroplasty(Right) - Fan Cummings DO Ordered Studies 08/16/22 05:00 US - OR guided needle placemen Routine Hospital Course (1) Status post right knee replacement: On August 16, 2022 Paula arrived at [facility] and underwent a right knee replaced without complication. She had a spinal anesthetic. Postoperatively she was started on aspirin for DVT prophylaxis and transferred to the general orthopedic floors. Her hospital course was uneventful. On postop day #1, her vital signs were stable and her pain was well controlled. She was able to participate well with physical therapy doing ambulation and range of motion exercises. She was then discharged home. She will follow-up with orthopedics in 2 weeks. PG Care Time/CCT Total # of Minutes Spent Total Time Spent with Patient: Total time spent is greater than 50% in coordination of care (as documented) at patient's floor/unit and/or counseling patient: Discharge Plan Discharge Items Patient Disposition: Home - Home Health Services Reason For Visit: DJD Right Knee Discharge Diagnosis: Right knee replacement Activity: Per Instructions section Non-emergency contact: Surgeon Call non-emergency contact if: your wound has increased redness and your wound has increased drainage Follow-up/Referrals: Charo Koch DO [Primary Care Provider] - Diet: Regular Addtl Attending Provider Instructions: Activity and Therapy Recommendations: * If you are using [facility] then therapy will be provided at your home until they feel you have accomplished all of your goals. * If you are using [facility] then Physical Therapy will be provided until they feel you are ready to start Outpatient Physical Therapy. * If you are not using home therapy then Outpatient Physical Therapy should start about 3-5 days from your day of surgery. Therapy will last about 6-10 weeks * It is important not to put a pillow under your knee when you are relaxing or sleeping. It is just as important to make sure you are getting your knee perfectly straight as it is to regain your knee bend. * You were shown a series of exercises in the hospital. Do these exercises three times each day including the exercises you were shown in physical therapy. * Get up and walk several times each day. For the first four weeks, try not to stand or walk for more than one hour at a time. If you do stand or walk for more than one hour, you will not hurt anything, but your leg will likely swell. * As you feel comfortable, you may change from the walker or crutches to a cane and then to independent walking. Medications: * Narcotic You will likely be sent home from the hospital with a prescription for the narcotic pain medication that worked best throughout your stay. * Aspirin Most patients will be required to take Aspirin 81mg twice a day for 6 weeks after surgery. This is obtained [id number] and a prescription is not necessary. * Other medications may be prescribed for specific circumstances. If you have any questions, please call the office at . * Resume previous home medications unless otherwise instructed TEDs/Elastic Stockings: The white elastic stockings help limit swelling and prevent blood clots from forming in your legs.~ The more you wear them, the more they work. Wear them for six weeks. Dressing Care: The dressing can be changed after physical therapy on postop day #1. Daily dry dressing changes for a few days, especially if the incision is still draining some. If the incision is not draining then you may leave the garfield open to air. If there is a little bit of drainage or if the garfield are getting stuck on your clothing then cover the incision with a dry dressing. The garfield will be removed at your 2 week follow-up appointment. Showering: You may shower 5 days from the day of surgery as long as the incision is no longer draining. You may shower with the garfield exposed. Let soapy water run over the garfield and pat them dry. Do not scrub or soak the incision. Things To Watch For: * Drainage from the incision site that occurs more than one week after your s urgery. * Increased redness at the incision site. * Fever above 102 degrees Fahrenheit. * Unusual chest pain or shortness of breath. * Call [facility] at with any of the above problems Follow-Up Visit: Follow-up with Dr. Cummings's PA (Fan Mantilla) 2-3 weeks after your day of surgery. He will remove your garfield and answer any questions. If you have any additional questions or concerns, Dr Cummings is usually in the office at the same time and will be available An appointment was probably scheduled when you signed-up for surgery in the [facility]. If you have any questions call Office Instructions: More detailed instructions as well as Frequently Asked Questions were provided in a folder by our office when you signed-up for surgery. Please review these instructions when you get home. If you have any further questions or concerns, please feel free to call the office at [phone] Pending Studies at Discharge: No Stand-Alone Forms: My [facility] upad, Smoking Cessation Medications and DC Order Prescriptions: New oxycodone-acetaminophen 5-325 mg tablet 1 tab PO Q6H PRN (Reason: pain) Qty: 30 0RF Continued albuterol sulfate 90 mcg/actuation HFA aerosol inhaler 2 puff INH Q6H PRN (Reason: shortness of breath or wheezing) Qty: 8.5 0RF (DME) blood pressure kit-extra large Kit See Rx Instructions .Route Qty: 1 0RF Rx Instructions: As directed cyanocobalamin (vitamin B-12) 2,000 mcg tablet 2,000 mcg PO DAILY (DME) pen needle, diabetic [Easy Comfort Pen [place]] 33 gauge x 5/32" needle See Rx Instructions .Route Qty: 200 3RF Rx Instructions: use with insulin up to 5 times daily (DME) Contour Next Test Strips Strip See Rx Instructions .Route Qty: 400 3RF Rx Instructions: test four x daily valsartan 40 mg tablet 40 mg PO QAM Qty: 90 3RF furosemide [Lasix] 20 mg tablet 20 mg PO UD PRN (Reason: Fluid Retention) (DME) lancets [BD Ultra Fine Lancets] 33 gauge misc See Rx Instructions .Route Qty: 300 3RF Rx Instructions: As directed: check tid cholecalciferol (vitamin D3) 125 mcg (5,000 unit) capsule 125 mcg PO HS multivitamin Tablet 1 tab PO QAM acetaminophen [Tylenol Ex Str Rapid Release] 500 mg Tablet 1,000 mg PO UD PRN (Reason: Pain) cyclobenzaprine 10 mg tablet 10 mg PO UD PRN (Reason: muscle spasm) trazodone 50 mg tablet 50 mg PO HS fluconazole [Diflucan] 150 mg tablet 150 mg PO UD PRN (Reason: YEAST INFECTION) Rx Instructions: may repeat second dose 72 hrs after first dose if symptoms persist tramadol 50 mg tablet 50 mg PO UD PRN (Reason: pain) magnesium oxide 500 mg tablet 500 mg PO HS clotrimazole 1 % cream 1 applic topical UD PRN (Reason: Skin Irritation) insulin lispro [Humalog KwikPen Insulin] 100 unit/mL insulin pen 25 unit UD MDD 100 units PRN (Reason: DIABETES) Rx Instructions: Inject 25units three times a day with meals plus sliding scale Toujeo Max U-300 SoloStar 300 unit/mL (3 mL) insulin pen 72 unit subcut HS MDD 80 Rx Instructions: 72 units titrate up to 80 units based on fasting blood sugar paroxetine HCl [Paxil] 10 mg tablet 10 mg PO QAM fluticasone furoate-vilanterol [Breo Ellipta] 100-25 mcg/dose blister with device 1 ea Inhalation QAM Changed aspirin 81 mg Capsule 81 mg PO BID 42 Days Qty: 0 0RF Admission Data Admit Date/Time: 08/16/22 11:45 Attending Provider: Fan Cummings Admit Provider: Fan Cummings Primary Care Provider: Charo Koch Other Providers: [facility],Home Health
[2022-08-17] MEDS: oxyCODONE HCL IR 5 MG TAB (IMMEDIATE RELEASE) PO PRN (08:23)
[2022-08-17] MEDS: ASPIRIN 81 MG ECTAB PO SCH (08:24)
[2022-08-17] MEDS: DOCUSATE SODIUM 100 MG CAP PO SCH (08:24)
[2022-08-17] MEDS ORDERED: VALSARTAN 80 MG TAB PO SCH (09:00)
[2022-08-17] MEDS ORDERED: PARoxetine HCL 10 MG TAB PO SCH (09:00)
[2022-08-17] MEDS ORDERED: MULTIVITAMIN TAB PO SCH (09:00)
[2022-08-17] MEDS ORDERED: NON-FORMULARY MEDICATION (Multivitamin Tablet) PO SCH (09:00)
[2022-08-17] MEDS ORDERED: FLUTICASONE/VILANTEROL 100/25MCG 14 PUFFS/INHALER INH SCH (09:00)
[2022-08-17] MEDS ORDERED: INSULIN ASPART PER UNIT CHARGE SC ONE (12:23)
== END 2022-08-17 12:24 | disposition home health service (06) ==
LOC: ASU 06:38 → 3E 06:38